=== PATIENT | male | born 1930 | race Caucasian/White ===

== ENCOUNTER 2017-03-24 08:58 | Day surgery (SDC) | payer MEDICARE ==
--- NOTE | 2017-03-21 06:58 | HP ---
PREOPERATIVE HISTORY AND PHYSICAL: DATE OF SURGERY/ADMISSION: 03/24/17. DATE OF OFFICE VISIT/ENCOUNTER: 03/20/17. ATTENDING SURGEON: Dr. Caron Vicente. (DICTATED BY DENNIS JIMENES) PROCEDURE: Revision amputation, left small finger. CHIEF COMPLAINT: Regrowth of fingernails from previously partially amputated left small finger. HISTORY OF PRESENT ILLNESS: This is an 86-year-old male complaining of regrowth of a partial fingernail at the left small finger following a left finger nail bed ablation/revision amputation in August 2016. It is bothersome to him and he would likely to have it surgically removed. PAST MEDICAL HISTORY: 1. Low back pain. 2. Hyperlipidemia. 3. History of angina. 4. Essential hypertension. 5. History of chest pain. 6. Peptic ulcer disease. 7. Cardiac pacemaker. 8. Heart disease. 9. Dizziness. 10. Atrial fibrillation. 11. Heart murmur. 12. Peripheral vascular disease. 13. Arthritis. 14. Hyperlipidemia. 15. Spinal stenosis. PAST SURGICAL HISTORY: 1. Right total knee arthroplasty. 2. Appendectomy. 3. Left hand trigger finger releases. 4. Left small finger bed ablation/revision amputation. CURRENT MEDICATIONS: 1. Zetia 10 mg half pill p.o. daily. 2. MiraLAX every Monday, Monday, Monday. 3. Ranexa 100 mg p.o. b.i.d. 4. Amoxicillin 500 mg 4 tablets one hour before dental work. 5. Crestor 20 mg half a tablet every Monday, Monday, Monday and Monday. 6. Nitrostat 0.4 mg one sublingual q. 5 minutes x3 as needed for chest pain. 7. Nexium 400 mg p.o. daily. 8. Aspirin 81 mg p.o. daily. 9. Rhinocort 32 mcg per spray 2 sprays each nostril daily. 10. Stool softener 100 mg p.o. b.i.d. 11. Lumigan 0.01% one drop in his left eye q.h.s. 12. Timolol maleate 0.5% one drop in the left eye every morning. 13. Warfarin 6 mg p.o. Monday, Monday, Monday, , Monday and Monday; and 1.5 tablets or 9 mg every Monday. 14. Propafenone 150 mg p.o. b.i.d. 15. Metoprolol 25 mg p.o. daily. 16. Isosorbide mononitrate ER 30 mg half tablet b.i.d. 17. Calcium 1000 mg plus vitamin D p.o. daily. 18. Multivitamin 1 p.o. t.i.d. 19. Fiber Complete 1 p.o. b.i.d. 20. Milk of magnesia p.r.n.. 21. Betaxolol HCl 0.5% one drop left eye q.h.s. 22. Nystatin/triamcinolone cream b.i.d. ALLERGIES: AMIODARONE and VIAGRA. FAMILY MEDICAL HISTORY: Noncontributory. SOCIAL HISTORY: The patient is retired. He is a former smoker. He quit in 1969. He denies creational drug use and denies alcohol use. REVIEW OF SYSTEMS: General: Negative for fevers, chills, or night sweats. No known anesthesia problems in the past. HEENT: Positive for headaches and occasional lightheadedness. Integumentary: Negative for abrasions, lesions or open wounds. Cardiovascular: Positive for history of heart murmur and hypertension. Respiratory: Negative. GI: Positive for heartburn, diarrhea, constipation, and acid reflux. : Positive for prostate trouble, nocturia, and urinary frequency. Musculoskeletal: Negative other than current complaints. Neurological: Negative for paresthesias, numbness, history of seizure, stroke, or epilepsy. Endocrine: Negative for diabetes or thyroid issues. Hematologic: Positive for easy bruising secondary to warfarin treatment. Infectious Disease: Negative for history of MRSA, hepatitis C, or HIV. PHYSICAL EXAMINATION GENERAL: Well-developed, well-nourished 86-year-old male, in no acute distress. VITAL SIGNS: Height 5 feet 7.5 inches, weight 201 pounds, blood pressure 120/74 , temperature 98 degrees. HEENT: Normocephalic, atraumatic. Pupils are equal, round, and reactive to light and accommodation. Extraocular movements are intact. NECK: Supple. No palpable lymph nodes. Throat is clear. PULMONARY: Lungs are clear to auscultation bilaterally. No wheezes, rales, or rhonchi. CARDIOTHORACIC: Regular rate and rhythm. S1, S2. No murmurs, rubs or gallops noted. No edema. ABDOMEN: Positive bowel sounds, soft, and nontender. NEUROLOGIC: Alert and oriented x3. Cranial nerves II through XII are intact. Sensation is intact to light touch. PERIPHERAL VASCULAR: 2+ radial and ulnar pulses, negative Mainor's test. MUSCULOSKELETAL: On exam of his left small finger, there is a small portion of a fingernail present at the tip of the finger. There is some mild associated tenderness to palpation but no erythema. No drainage. IMPRESSION: Left small finger residual fingernail after previous revision amputation. PLAN: The patient is scheduled to undergo a left small finger revision amputation with Dr. Vicente on 03/24/17. He will return to the office 10 to 14 days postop for followup and suture removal. A prescription for Ultracet was e- scribed to the patient's pharmacy for postoperative pain management. We will plan on having the patient continue to take his warfarin throughout the perioperative time-frame. DENNIS JIMENES [id number]/[facility] #: [id number] KWABENA
[2017-03-24] MEDS ORDERED: Lidocaine 1% INJ* 10 MG/ML 30 ML SDV ONE (10:31)
[2017-03-24 11:33] VITALS: BP 126/74
--- NOTE | 2017-04-06 01:31 | OP ---
DATE OF OPERATION: 03/24/17 [facility] DATE OF : 34 SURGEON: Dr. Vicente. CIVIL RIGHTS ATTORNEY: DENNIS Arenas ANESTHESIA: Straight local. PRE-OP DIAGNOSIS: Left little finger partial amputation. POST-OP DIAGNOSIS: Left little finger partial amputation. OPERATIVE PROCEDURE: Revision amputation, left little finger. ESTIMATED BLOOD LOSS: Zero. TOURNIQUET TIME: About 10 minutes. INDICATIONS FOR PROCEDURE: Mr. Hutchins is an 86-year-old man who suffered a partial amputation of his left little finger. He has a small amount of fingernail growing at the end of his finger and he presents for revision amputation. DESCRIPTION OF PROCEDURE: The patient was brought to the operating room, was given a digital block anesthetic with 10 cc of 1% plain lidocaine. The skin of his left hand and forearm was prepped and draped in the usual sterile fashion. A tourniquet Tourni-Cot was used as a tourniquet for just the left little finger. An elliptical incision was then made around the fingernail and it was removed with full thickness of the skin. The wound was irrigated and the skin edges were reapproximated with 4- 0 Nylon suture. The wound was dressed with Xeroform, 4x4, Webril, and an Darius wrap. The patient tolerated the procedure well and was brought to the recovery room in good condition. [id number]/[facility] #: [id number] MTDD
== END 2017-03-24 11:30 | disposition home or self-care (01) ==
LOC: OREAST 08:58
PROVIDERS: ATTEND Orthopaedic Surgery
DX: L72.0 Epidermal cyst (principal); E78.5 Hyperlipidemia, unspecified; I48.91 Unspecified atrial fibrillation; I11.9 Hypertensive heart disease without heart failure; I73.9 Peripheral vascular disease, unspecified; K27.9 Peptic ulcer, site unspecified, unspecified as acute or chronic, without hemorrhage or perforation; Z79.82 Long term (current) use of aspirin; Z79.01 Long term (current) use of anticoagulants; Z88.8 Allergy status to other drugs, medicaments and biological substances; Z87.891 Personal history of nicotine dependence; Z89.022 Acquired absence of left finger(s); Z95.0 Presence of cardiac pacemaker
CPT/HCPCS: 88304; J2001

== ENCOUNTER 2017-12-11 14:34 | Emergency (ER) | payer OTHER ==
[2017-12-11 14:50] VITALS: BP 129/72
--- NOTE | 2017-12-11 15:25 | RAD ---
Indication: Left wrist pain 3 views of the wrist demonstrates no fracture. Degenerative changes of the radiocarpal joint is noted with deformity of the distal ulna. IMPRESSION: NO FRACTURE OF THE WRIST IS NOTED. Degenerative changes radiocarpal joint with deformity of the ulna remodeling.
--- NOTE | 2017-12-11 15:35 | UC ---
Kavitha Lopez Gabriel, scribed for Karina Velázquez MD on 12/11/17 at 1526 . Hand/Wrist HPI - HPI Summary HPI Summary: This patient is an 87 year old M presenting to [facility] s/p fall that occurred 3 weeks ago. Pt tripped over a shop vac hose and landed on his left wrist. He did hit his head on the way down. The patient rates the pain 5/10 in severity and radiating up his arm. Symptoms alleviated by acetaminophen although, patient has placed heat on it and wrapped it in an ashok bandage without relief. Pt denies paresthesia or weakess. Skin intact. Pt is RHD. Pt is on warafarin. No h /o injury to same. Pt's was at side when fall occurred - no LOC Pt did strike left frontal area with small abraison at time of injury. Pt did not have LOC. No headache, blood HEENT, vision changes, confusion, balance difficulties or any other concerns since time of injury.Tdap UTD. Patients medication reviewed during this visit. - History Of Current Complaint Chief Complaint: UCUpperExtremity Stated Complaint: ARM INJURY Time Seen by Provider: 12/11/17 14:41 Hx Obtained From: Patient, Family/Professor Computer Science Onset/Duration: Lasting Weeks - 3 Severity Initially: Moderate Severity Currently: Moderate Pain Intensity: 5 Pain Scale Used: 0-10 Numeric Character Of Pain: Aching, Stiffness Aggravating Factor(s): Movement, Pulling Alleviating Factor(s): OTC Meds - APAP intermittently, Other - ashok applied Associated Signs And Symptoms: Negative: Numbness/Tingling - Allergies/Home Medications Allergies/Adverse Reactions: Allergies Allergy/AdvReac Type Severity Reaction Status Date / Time amiodarone Allergy Mild See Comment Verified 12/11/17 14:43 sildenafil Allergy Dizziness Verified 12/11/17 14:43 PMH/Surg Hx/FS Hx/Imm Hx Previously Healthy: No Cardiovascular History: Cardiac Disease, Hypertension Other Cancer History: Prostate cancer Other History Of: Anticoagulant Therapy - Surgical History Surgical History: Yes Surgery Procedure, Year, and Place: 2004 CABGover four years - placement of 7 stents; APPENDECTOMY - YEARS AGO; SINUS SURGERY - YEARS AGO; RT KNEE REPLACEMENT , PACEMAKER PLACEMENT 02/13/14 - Family History Known Family History: Positive: Cardiac Disease - Social History Occupation: Retired Lives: With Family Alcohol Use: None Substance Use Type: None Smoking Status (MU): Former Smoker Type: Cigarettes Amount Used/How Often: PACK A DAY Have You Smoked in the Last Year: No When Did the Patient Quit Smoking/Using Tobacco: 1972 - Immunization History Most Recent Influenza Vaccination: 2012 Most Recent Tetanus Shot: unknown Most Recent Pneumonia Vaccination: August 2013 Review of Systems Constitutional: Negative Skin: Bruising - mild left forearm Musculoskeletal: Other: - wirst pain, back pain Neurological: Negative - LOC All Other Systems Reviewed And Are Negative: Yes Physical Exam Triage Information Reviewed: Yes Appearance: Well-Appearing, No Pain Distress, Well-Nourished Vital Signs: Initial Vital Signs Temp 97.7 F 12/11/17 14:44 Pulse 75 12/11/17 14:44 Resp 20 12/11/17 14:44 BP 129/72 12/11/17 14:44 Pulse Ox 100 12/11/17 14:44 Vital Signs Reviewed: Yes Eyes: Positive: Conjunctiva Clear ENT: Positive: Hearing grossly normal Neck: Positive: Supple Respiratory: Positive: No respiratory distress, No accessory muscle use Cardiovascular: Positive: Other: - 2+ radial, 2+ ulnar CBT < 2 sec Musculoskeletal: Positive: Other: - + flex/ext elbow with mild discomfort prox, dorsu forearm + pronate/supinate + f;ext/ext wrist with mild discomfort ulnar styloid no scaphoid pain no pain carpals,metacarpals, phalanges Neurological: Positive: Other: - + thumb up, a ok, finger spread, finger cross + gross sensation throughout 5/5/ grasp Psychological Exam: Normal Skin: Positive: Other - pt missing distal phalanges ring and 5th finger left hand from previous injury Diagnostics - Radiology wrist Xray Radiology Interpretation Completed By: Radiologist - NO FRACTURE OF THE WRIST IS NOTED. Degenerative changes radiocarpal joint with deformity of the ulna remodeling. Dr. Velázquez has reviewed this report. Hand/Wrist Course/Dx - Course Course Of Treatment: Pt with discomfort distal wrist, over ulnar styloid s/p mechanical fall 3 weeks ago. will image. splint. if fx, ortho f/u. if not fx , pcp after period of splint and wrist. pt and spouse comfortable and in agreement with plan - Differential Dx/Diagnosis Provider Diagnoses: left wrist sprain Discharge - Discharge Plan Condition: Stable Disposition: HOME Patient Education Materials: Wrist Sprain (ED) Referrals: Jose Alejandro Longoria MD [Primary Care Provider] - Additional Instructions: - Wear splint as much as possible for comfort and support - Okay to take Tylenol every 8 hours as needed for discomfort - Okay to apply ice (not directly on the skin) 20 minutes at a time, 2-3 times a day for pain and swelling. - Contact your doctor to schedule a follow-up at the end of this week Contact your doctor or return with questions or concerns The documentation as recorded by the Kavitha benavides Gabriel accurately reflects the service I personally performed and the decisions made by , Karina Velázquez MD.
== END 2017-12-11 14:45 | disposition home or self-care (01) ==
LOC: UCEAST 14:34
DX: S63.502A Unspecified sprain of left wrist, initial encounter (principal); W01.0XXA Fall on same level from slipping, tripping and stumbling without subsequent striking against object, initial encounter; Y93.9 Activity, unspecified; Y92.9 Unspecified place or not applicable; I11.9 Hypertensive heart disease without heart failure; Z95.1 Presence of aortocoronary bypass graft; Z95.5 Presence of coronary angioplasty implant and graft; Z79.01 Long term (current) use of anticoagulants; Z95.0 Presence of cardiac pacemaker; Z96.651 Presence of right artificial knee joint; Z87.891 Personal history of nicotine dependence; Z85.46 Personal history of malignant neoplasm of prostate; Z88.8 Allergy status to other drugs, medicaments and biological substances
CPT/HCPCS: 99213; G0463

== ENCOUNTER 2018-01-25 13:40 | Emergency (ER) | payer OTHER ==
--- OUTSIDE RECORDS SUMMARY | 2018-01-25 13:50 | XMS REPORT ---
:1930 External Reference #:[id number] Author Organization [facility] [employer] Address [address] [place] [address] Phone [phone] Care Team Providers Name Role Phone Jose Alejandro Longoria M.D. Primary Care Physician Unavailable Payers Type Date Identification Numbers Payment Provider Subscriber Commercial Policy Number: [id number] [employer] Angelica Alan Hutchins Group Number: [id number] [address] [id number] PayID: [id number] [place] [address] Problems Date Description Provider Status Onset: Basal cell carcinoma of skin Active Onset: Allergy Active Onset: H/O: hay fever Active Onset: Gastroesophageal reflux disease Active Onset: Carcinoma of prostate Active Onset: Cardiac pacemaker in situ Active Onset: Atrial fibrillation Active Onset: Angina Active Onset: Arthritis Active Onset: Vertigo Active Onset: Pure hypercholesterolemia Active Onset: Seasonal allergy Active Onset: 04/29/2015 Primary open angle glaucoma Margarita Kilpatrick O.D. Active Onset: 04/29/2015 Vitreous degeneration Margarita Kilpatrick O.D. Active Onset: 04/29/2015 Myopia Margarita Kilpatrick O.D. Active Onset: 04/29/2015 Presbyopia Margarita Kilpatrick O.D. Active Onset: 04/29/2015 Mild / Early Stage Glaucoma Margarita Kilpatrick O.D. Active Onset: 06/16/2016 Pseudophakia Margarita Kilpatrick O.D. Active Onset: 07/20/2016 Retained foreign body of eyelid Dominique Alberts O.D. Active Onset: 12/15/2016 Primary open angle glaucoma of left Margarita Kilpatrick O.D. Active eye Onset: 06/29/2017 Regular astigmatism Margarita Kilpatrick O.D. 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 morning Lumigan 04/28/ Active Solution 0.01% 90unit one drop Margarita Jones 2014 s left eye [place], every O.D. night Isosorbide / Active Tablets ER 30mg [place], Mononitrate ER 0000 24HR Mary Love Ranexa / Active Tablets ER 1000mg Unknown 0000 12HR Propafenone / Active Tablets 150mg Unknown HCL 0000 Metoprolol / Active Tablets 25mg Unknown Tartrate 0000 Warfarin / Active Tablets 6mg Unknown Sodium 0000 Nitrostat / Active Tablets Sub 0.4mg as needed [place], 0000 Mary Love Crestor / Active Tablets 5mg [place], 0000 Mary Love Nexium / Active Capsules DR 40mg Unknown 0000 Fibercon / Active Tablets 625mg Unknown 0000 Miralax / Active Powder 3350NF Unknown 0000 Famotidine / Active Tablets 40mg Unknown 0000 Multi Vitamin / Active Tablets Unknown Daily 0000 Calcium 600 / Active Tablets 600mg Unknown 0000 Rhinocort Aqua / Active Suspension 32mcg/Act Unknown 0000 Zetia / Active Tablets 10mg [place], 0000 Mary Love Stool Softener / Active Capsules 100mg Unknown 0000 Maxitrol 07/20/ Hx Ointment 3.5-19791- 3.500g place 0.5 Dominique 2016 - 0.1 m inch Cyndi Alberts, 07/31/ strip in O.D. 2016 the left eye at night for 1 week Rosuvastatin / Hx Tablets 20mg [place], Calcium 0000 - Mary Love 2016 Results Description No Information Procedures Date CPT Code Description Status 01/03/2018 31436 Est Patient Intermediate Exam Completed 06/29/2017 85901 Scanning Computerized Ophthalmic Diagnostic Imag Completed Posterior Seg On 06/29/2017 03145 Visual Field Exam Extended Completed 06/29/2017 17475 Determination Of Refractive State Completed 06/29/2017 51794 Est Patient Comprehensive Exam Completed 07/20/2016 50788 Est Patient Intermediate Exam Completed 06/16/2016 35758 Scanning Computerized Ophthalmic Diagnostic Imag Completed Posterior Seg On 06/16/2016 18558 Visual Field Exam Extended Completed 06/16/2016 74879 Est Patient Comprehensive Exam Completed 11/09/2015 77177 Est Patient Intermediate Exam Completed 04/29/2015 67139 Est Patient Comprehensive Exam Completed 04/29/2015 18467 Determination Of Refractive State Completed 04/29/2015 25655 Visual Field Exam Extended Completed 04/29/2015 67969 Scanning Computerized Ophthalmic Diagnostic Imag Completed Posterior Seg On 04/10/2014 49558 Fundus Photography With Interpretation And Report Completed 03/18/2013 36781 Visual Field Exam Extended Completed 03/18/2013 90251 Est Patient Intermediate Exam Completed 02/15/2012 49336 Visual Field Exam Extended Completed 02/15/2012 96927 Est Patient Comprehensive Exam Completed 02/15/2012 602 Nose Pads Completed 02/11/2011 68444 Visual Field Exam Extended Completed 02/11/2011 57277 Pachymetry Completed 02/07/2011 29646 Scanning Computerized Ophthalmic Diagnostic Imag Completed Posterior Seg On 02/07/2011 02028 Est Patient Intermediate Exam Completed 07/22/2009 36087 Est Patient Intermediate Exam Completed 06/25/2008 03430 Determination Of Refractive State Completed 06/25/2008 73062 New Patient Comprehensive Exam Completed Encounters Type Date Location Provider CPT E/M Dx Office Visit 12/15/2016 Jarred Philippe MD, Margarita Kilpatrick, 05057 H40.1122 3:00p pc O.D. Office Visit 10/10/2014 Jarred Philippe MD, Margarita Kilpatrick, 72894 365.11 9:30a pc O.D. 365.71 Office Visit 04/10/2014 1:45p Jarred Philippe MD, Todd Daly M.D. 65478 365.12 pc 365.72 Office Visit 10/18/2013 2:30p Jarred Philippe MD, Margarita Kilpatrick O.D. 23062 930.1 pc Office Visit 10/07/2013 2:30p Jarred Philippe MD, Todd Daly M.D. 88777 365.12 pc 365.72 Office Visit 03/16/2012 1:30p Jarred Philippe MD, Todd Daly M.D. 82763 365.11 pc 365.71 Office Visit 02/11/2011 8:45a Jarred Philippe MD, Todd Daly M.D. 61547 pc Office Visit 07/05/2008 1:00p Jarred Philippe MD, Dominique Alberts O.D. 00525 918.1 pc Office Visit 07/04/2008 10:15a Jarred Philippe MD, Dominique Alberts O.D. 19033 918.1 Plan of Care 01/24/2018 - Margarita Kilpatrick O.D.H40.1121 Primary open-angle glaucoma, left eye , mild stageComments:Smoking can increase the risk of developing or worsening any eye related disease, as well as affect your overall health. If you are a smoker, we strongly recommend that you quit.If you are not a smoker, we strongly recommend that you do not start. Your glaucoma is stable at this time.Your eye pressure is within an acceptable range, and your testing does not show any Glaucoma related changes at thistime. Please continue your treatment.Follow up:6 months DFE/OCT nerve/VF 30-2
--- OUTSIDE RECORDS SUMMARY | 2018-01-25 13:51 | XMS REPORT ---
:1930 External Reference #:[id number] Author Organization [employer] Address [address] [place] [address] Phone [phone] Care Team Providers Name Role Phone Jose Alejandro Longoria M.D. 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 morning Lumigan 04/28/ Active Solution [...] / Active Tablets Sub 0.4mg as needed [place], 0000 Mary Love Crestor / Active Tablets 5mg [place], 0000 Mary Love Nexium / Active Capsules DR 40mg Unknown 0000 Fibercon / Active Tablets 625mg Unknown 0000 Miralax / Active Powder 3350NF Unknown 0000 Famotidine / Active Tablets 40mg Unknown 0000 Multi Vitamin / Active Tablets Unknown Daily 0000 Calcium 600 / Active Tablets 600mg Unknown 0000 Rhinocort Aqua / Active Suspension 32mcg/Act Unknown 0000 Zetia / Active Tablets 10mg [place], 0000 Mary Ivan Stool Softener / Active Capsules 100mg Unknown 0000 Maxitrol 07/20/ Hx Ointment 3.5-87745- 3.500g place 0.5 Dominique 2016 - 0.1 m inch Cyndi Alberts, 07/31/ strip in O.D. 2016 the left eye at night for 1 week Rosuvastatin / Hx Tablets 20mg [place], Calcium 0000 - Mary Love 2016 Results Description No Information Procedures Date CPT Code Description Status 06/29/2017 71003 Scanning Computerized Ophthalmic Diagnostic Imag Completed Posterior Seg On 06/29/2017 17709 Visual Field Exam Extended Completed 06/29/2017 00428 Determination Of Refractive State Completed 06/29/2017 33634 Est Patient Comprehensive Exam Completed 07/20/2016 96960 Est Patient Intermediate Exam Completed 06/16/2016 40729 Scanning Computerized Ophthalmic Diagnostic Imag Completed Posterior Seg On 06/16/2016 15091 Visual Field Exam Extended Completed 06/16/2016 68619 Est Patient Comprehensive Exam Completed 11/09/2015 47580 Est Patient Intermediate Exam Completed 04/29/2015 15547 Scanning Computerized Ophthalmic Diagnostic Imag Completed Posterior Seg On 04/29/2015 54930 Visual Field Exam Extended Completed 04/29/2015 10815 Determination Of Refractive State Completed 04/29/2015 90257 Est Patient Comprehensive Exam Completed 04/10/2014 01293 Fundus Photography With Interpretation And Report Completed 03/18/2013 36070 Visual Field Exam Extended Completed 03/18/2013 67671 Est Patient Intermediate Exam Completed 02/15/2012 92853 Visual Field Exam Extended Completed 02/15/2012 22531 Est Patient Comprehensive Exam Completed 02/15/2012 602 Nose Pads Completed 02/11/2011 09232 Visual Field Exam Extended Completed 02/11/2011 85903 Pachymetry Completed 02/07/2011 10523 Scanning Computerized Ophthalmic Diagnostic Imag Completed Posterior Seg On 02/07/2011 84989 Est Patient Intermediate Exam Completed 07/22/2009 43803 Est Patient Intermediate Exam Completed 06/25/2008 33025 Determination Of Refractive State Completed 06/25/2008 68219 New Patient Comprehensive Exam Completed Encounters Type Date Location Provider CPT E/M Dx Office Visit 12/15/2016 Jarred Philippe MD, Margarita Kilpatrick, 56835 H40.1122 3:00p pc O.D. Office Visit 10/10/2014 Jarred Philippe MD, Margarita Kilpatrick, 23885 365.11 9:30a pc O.D. 365.71 Office Visit 04/10/2014 1:45p Jarred Philippe MD, Todd Daly M.D. 22493 365.12 pc 365.72 Office Visit 10/18/2013 2:30p Jarred Philippe MD, Margarita Kilpatrick O.D. 28079 930.1 pc Office Visit 10/07/2013 2:30p Jarred Philippe MD, Todd Daly M.D. 65797 365.12 pc 365.72 Office Visit 03/16/2012 1:30p Jarred Philippe MD, Todd Daly M.D. 41761 365.11 pc 365.71 Office Visit 02/11/2011 8:45a Jarred Philippe MD, Todd Daly M.D. 18658 pc Office Visit 07/05/2008 1:00p Jarred Philippe MD, Dominique Alberts O.D. 15271 918.1 pc Office Visit 07/04/2008 10:15a Jarred Philippe MD, Dominique Alberts O.D. 86459 918.1 Plan of Care Future Appointment(s):01/24/2018 1:15 pm - Margarita Kilpatrick O.D. at Jarred Philippe MD, 01/03/2018 - Margarita Kilpatrick O.D.H40.1121 Primary open-angle glaucoma, left eye, mild stageComments:Smoking can increase the risk of [...] related changes at thistime. Please continue your treatment. Smoking can increase the risk of developing or worsening any eye related disease, as well as affect your overall health. If you are a smoker , we strongly recommend that you quit.If you are not a smoker, we strongly recommend that you do not start. Your glaucomais stable at this time.Your eye pressure is within an acceptable range, and your testing does not show any Glaucoma related changes at this time. Please continue your treatment.
[2018-01-25 14:01] VITALS: BP 98/62
--- NOTE | 2018-01-25 14:49 | UC ---
General HPI - HPI Summary HPI Summary: 87 yo WM with MMP c/o fall x 4 in the last 4-6 weeks. pt was recently dx'd with spinal stenosis and has trouble " clearing the floor with his feet' C/o LBP , left elbow pain. Denies dizziness, LOC - History of Current Complaint Chief Complaint: UCBackPain Stated Complaint: FELL BACK INJURY Time Seen by Provider: 01/25/18 14:01 Hx Obtained From: Patient Hx From Patient Unobtainable Due To: Other Onset/Duration: Sudden Onset Onset Severity: Moderate Pain Intensity: 10 - Allergy/Home Medications Allergies/Adverse Reactions: Allergies Allergy/AdvReac Type Severity Reaction Status Date / Time amiodarone Allergy Mild See Comment Verified 01/25/18 13:50 sildenafil Allergy Dizziness Verified 01/25/18 13:50 PMH/Surg Hx/FS Hx/Imm Hx - Additional Past Medical History Additional PMH: Spinal stenosis Previously Healthy: Yes Cardiovascular History: Cardiac Disease, Pacemaker/ICD Cancer History: Prostate Cancer Other History Of: Anticoagulant Therapy - Surgical History Surgical History: Yes Surgery Procedure, Year, and Place: 09/14/04 Gastroscopy- hiatial hernia; 10/03/04 - Cardiac Bi-pass of the circumfelx CA & Left anterior descending artery; : 3 stents in RCA; 03/03/05-1 stent proximal coronary; 01/04/2015- RCA- 3 stents; 08/06/13 Right TKR; 08/17/18- ED for "heart shock"; 01/28/14-prostate biopsy; adenocarcinoma; 02/12/14 Pacemaker placed - Family History Known Family History: Positive: Cardiac Disease - Social History Alcohol Use: None Substance Use Type: None Smoking Status (MU): Former Smoker Type: Cigarettes Amount Used/How Often: PACK A DAY Have You Smoked in the Last Year: No When Did the Patient Quit Smoking/Using Tobacco: 1972 - Immunization History Most Recent Influenza Vaccination: 2012 Most Recent Tetanus Shot: unknown Most Recent Pneumonia Vaccination: August 2013 Review of Systems Constitutional: Negative Skin: Negative Eyes: Negative ENT: Negative Respiratory: Negative Cardiovascular: Negative Gastrointestinal: Negative Genitourinary: Negative Motor: Negative Neurovascular: Negative Musculoskeletal: Decreased ROM, Myalgia - LBP, left elbow pain Neurological: Negative Psychological: Negative All Other Systems Reviewed And Are Negative: Yes Physical Exam Triage Information Reviewed: Yes Appearance: Well-Appearing Vital Signs: Initial Vital Signs Temp 36.5 C 01/25/18 13:50 Pulse 71 01/25/18 13:50 Resp 18 01/25/18 13:50 BP 98/62 01/25/18 13:50 Pulse Ox 99 01/25/18 13:50 Eye Exam: Other ENT Exam: Normal Neck exam: Normal Respiratory Exam: Normal Respiratory: Positive: Lungs clear Cardiovascular Exam: Normal Abdominal Exam: Normal Musculoskeletal: Positive: Other: - B/L wrist pain, lumbar and lower thoracic paraspinal tenderness and midline tenderness, no radiculopathy Neurological Exam: Normal Psychological Exam: Normal Course/Dx - Course Course Of Treatment: XR of left elbow neg for fx, CT of brain neg for ICH or subdural hematoma, CT c-spine, thoracic and lumbar spine done, of note, T9-10 nondisplaced vertebral body fx noted on CT and per radiologist. On CT and speaking with radiologist, he also notes "ankylosing spondylitis but no spinal stenosis". advised f/u with neurosurgery priya - Differential Dx - Multi-Symptom Provider Diagnoses: thoracic lumbar fracture T9-10 Discharge - Sign-Out/Discharge Documenting (check all that apply): Discharge/Admit/Transfer - Discharge Plan Condition: Stable Disposition: HOME Patient Education Materials: Thoracolumbar Fracture (ED) Referrals: Morgan Flowers MD [Medical Doctor] - Jose Alejandro Longoria MD [Primary Care Provider] - Additional Instructions: please follow up with neurosurgery priya - Billing Disposition and Condition Condition: STABLE Disposition: HOME
--- NOTE | 2018-01-25 15:29 | RAD ---
Indication: Left elbow pain after fall. 4 views of left elbow demonstrates degenerative changes. Anterior fat pad sign is noted. No definite fracture is noted. If there is persistent clinical concern follow-up imaging is suggested. Calcifications along the triceps tendon is noted. IMPRESSION: No definite fracture is noted although there is anterior fat pad sign. Depending on clinical scenario follow-up imaging could BE performed.
--- NOTE | 2018-01-25 15:30 | RAD ---
HISTORY: Fall, back pain COMPARISONS: None TECHNIQUE: Multiple contiguous axial CT scans were obtained of the cervical spine without intravenous contrast, with coronal and sagittal multiplanar reformations. FINDINGS: BRAIN: The visualized brain is unremarkable CENTRAL CANAL: Evaluation of the central canal is limited on CT technique; however, there is no obvious canalicular mass or epidural hemorrhage. ALIGNMENT: The alignment is normal, without subluxation or dislocation. VERTEBRAL BODIES: There is diffuse osteopenia. There is no displaced fracture. JOINTS: There is facet osteoarthritis with mild uncovertebral osteoarthritis. There is osteoarthritis of the atlantoaxial articulation. MUSCULATURE: Unremarkable INTERVERTEBRAL DISCS: There is diffuse loss of intervertebral disc height. AXIAL IMAGES: C2-C3: There is no osseous neural foraminal narrowing or central canal stenosis. C3-C4: There is mild bilateral neural foraminal narrowing. There is no osseous central canal stenosis. C4-C5: There is mild bilateral neuroforaminal narrowing. There is no osseous central canal stenosis. C5-C6: There is no osseous neural foraminal narrowing or central canal stenosis. C6-C7: There is no osseous neural foraminal narrowing or central canal stenosis. C7-T1: There is no osseous neural foraminal narrowing or central canal stenosis. SOFT TISSUES: The visualized soft tissues of the neck are unremarkable. The prevertebral fat stripe is preserved. OTHER: There is a small left mastoid effusion.. IMPRESSION: 1. OSTEOPENIA. 2. DEGENERATIVE DISC DISEASE AND OSTEOARTHRITIS. 3. NO ACUTE OSSEOUS INJURY TO THE CERVICAL SPINE. 4. SMALL LEFT MASTOID EFFUSION.
--- NOTE | 2018-01-25 15:30 | RAD ---
INDICATION: Head injury. COMPARISON: Comparison is made with a prior CT of the brain from July 27, 2016. TECHNIQUE: Contiguous axial sections of the brain were obtained from the skull base to the vertex without contrast. FINDINGS: The ventricles, cisterns and sulci are enlarged consistent with diffuse atrophy. There are multiple focal areas of decreased density in the subcortical and periventricular white matter suggestive of moderate chronic small vessel ischemic changes. No other focal abnormality or mass effect is seen. There is no evidence for hemorrhage. No significant focal osseous abnormality is seen. The visualized portion of the paranasal sinuses and mastoid air cells appear clear. The patient appears to be status post paranasal sinus surgery. IMPRESSION: NO EVIDENCE FOR ACUTE INTRACRANIAL ABNORMALITY.
--- NOTE | 2018-01-25 15:31 | RAD ---
Indication: Low back pain. CT of the lumbar spine was obtained in the axial plane. Sagittal and coronal reconstructed images were obtained. The vertebral bodies appear normal in height. No evidence of compression is noted. There is diffuse osteopenia noted. No pelvic masses are noted. At L5-S1 no disc protrusion is noted. Moderate facet hypertrophy is noted. No central or foraminal stenosis is noted. At L4-L5 degenerative disc disease with moderate facet hypertrophy is noted. No central or foraminal stenosis is noted. No foraminal stenosis is noted. At L3-L4 there is no disc protrusion. No central or foraminal stenosis is noted. No facet arthropathy is noted. At L2-L3 spondylitic ridge flattens the thecal sac. No central or foraminal stenosis is noted. At L1-L2 there is no disc protrusion. Degenerative disc disease is noted. No central or foraminal stenosis is noted. At T12-L1 degenerative disc disease is noted. No compression fracture is noted. IMPRESSION: Diffuse osteopenia with degenerative changes of the facet joint most severe at L3-L4, L4-L5 and L5-S1. Degenerative disc disease at L1-L2 and L2-L3 is also noted.
--- NOTE | 2018-01-25 15:40 | RAD ---
HISTORY: Fall, low back pain COMPARISONS: CT of the chest dated August 11, 2013 TECHNIQUE: Multiple contiguous axial CT scans were obtained of the thoracic spine without intravenous contrast, with coronal and sagittal multiplanar reformations. FINDINGS: SPINAL CANAL: Evaluation of the central canal is limited on CT technique; however, there is no obvious canalicular mass or epidural hemorrhage. ALIGNMENT: The alignment is normal. VERTEBRAL BODIES: There is diffuse osteopenia. There is ossification of the anterior syndesmophytes, with disruption of the anterior syndesmophytes at T9-T10, with a linear lucency of the anterior and middle thirds of the T10 vertebral body. JOINTS: There is mild osteoarthritis of the costovertebral articulations. MUSCULATURE: Unremarkable INTERVERTEBRAL DISCS: There is diffuse loss of intervertebral disc height throughout the spine. AXIAL IMAGES: There is no osseous central canal stenosis or neuroforaminal narrowing. SOFT TISSUES: The visualized soft tissues of the chest and abdomen are unremarkable. OTHER: None IMPRESSION: 1. OSTEOPENIA. 2. FINDINGS CONSISTENT WITH A CLOSE AND SPONDYLITIS. 3. THERE IS NONDISPLACED FRACTURE THROUGH THE ANTERIOR SYNDESMOPHYTES AT T9-T10, EXTENDING THROUGH THE INTERVERTEBRAL DISC SPACE AND INTO THE ANTERIOR AND MIDDLE THIRDS OF THE VERTEBRAL BODY OF T10. PRELIMINARY FINDINGS WERE DISCUSSED WITH DR. BOWLES AT APPROXIMATELY 3:36 PM ON JANUARY 25, 2018.
== END 2018-01-25 16:07 | disposition home or self-care (01) ==
LOC: UCEAST 13:40
DX: S22.071A Stable burst fracture of T9-T10 vertebra, initial encounter for closed fracture (principal); W19.XXXA Unspecified fall, initial encounter; Z91.81 History of falling; Y93.9 Activity, unspecified; Y92.9 Unspecified place or not applicable; M85.88 Other specified disorders of bone density and structure, other site; M46.94 Unspecified inflammatory spondylopathy, thoracic region; M51.36 Other intervertebral disc degeneration, lumbar region; M50.30 Other cervical disc degeneration, unspecified cervical region; H74.8X2 Other specified disorders of left middle ear and mastoid; M25.522 Pain in left elbow; Z95.810 Presence of automatic (implantable) cardiac defibrillator; Z79.01 Long term (current) use of anticoagulants; Z95.5 Presence of coronary angioplasty implant and graft; Z85.46 Personal history of malignant neoplasm of prostate; Z96.651 Presence of right artificial knee joint; Z88.8 Allergy status to other drugs, medicaments and biological substances; Z87.891 Personal history of nicotine dependence
CPT/HCPCS: 70450; 72125; 72128; 72131; 81003; 99212; G0463

== ENCOUNTER 2019-11-06 16:55 | Emergency (ER) | payer MEDICARE ==
--- OUTSIDE RECORDS SUMMARY | 2019-11-06 17:10 | XMS REPORT ---
:1930 Author Organization [facility] Care Team Providers Name Role Phone Unavailable Unavailable Unavailable Problems This patient has no known problems. Allergies, Adverse Reactions, Alerts Allergy Allergy Status Severity Reaction(s) Onset Inactive Treating Comments Name Type Date Date Clinician Unknown None Active Unknown None Unknown No Known Allergies For This Patient Medications Ordered Filled Start Stop Current Ordering Indication Dosage Frequency Signature Comments Components Medication Medication Date Date Medication? Clinician (SIG) Name Name No Known No Known No None None None Medications Medications For This For This Patient Patient Procedures This patient has no known procedures. Results This patient has no known results.
--- OUTSIDE RECORDS SUMMARY | 2019-11-06 17:10 | XMS REPORT ---
:1930 Author Organization [facility] Care Team Providers Name Role Phone Unavailable [...]
--- OUTSIDE RECORDS SUMMARY | 2019-11-06 17:10 | XMS REPORT ---
:1930 Author Organization [facility] Care Team Providers Name Role Phone Unavailable [...]
--- OUTSIDE RECORDS SUMMARY | 2019-11-06 17:10 | XMS REPORT ---
:1930 Author Organization [facility] Care Team Providers Name Role Phone Unavailable [...]
--- OUTSIDE RECORDS SUMMARY | 2019-11-06 17:10 | XMS REPORT | Continuity of Care Document ---
:1930 External Reference #:[id number] Author Name Mary Stoner M.D. (transmitted by agent of provider Sosa Waters) Address [address] [place] [id number] Care Team Providers Name Role Phone [facility] - Care Team Information Senior Analyst Developer [phone] [facility] Maru Drake F.N.P. - Family Care Team Information Senior Analyst Developer [phone] Benjamin Singh MD - Family Care Team Information Senior Analyst Developer [phone] Medicine Problems Active Problems Provider Date Arteriosclerosis of autologous vein coronary Mary Stoner M.D. Onset: 2012 artery bypass graft Conduction disorder of the heart Mary Stoner M.D. Onset: 07/09/2013 Benign essential hypertension Mary Stoner M.D. Onset: 07/09/2013 Mixed hyperlipidemia Mary Stoner M.D. Onset: 07/09/2013 Arthropathy Mary Stoner M.D. Onset: 07/09/2013 Peripheral vascular disease Mary Stoner M.D. Onset: 07/09/2013 Heart murmur Mary Stoner M.D. Onset: 07/09/2013 Atrial fibrillation Mary Stoner M.D. Onset: 08/27/2013 Dizziness and giddiness Nurse Visit IC Onset: 09/27/2013 Coronary arteriosclerosis Mary Stoner M.D. Onset: 11/25/2013 Chronic ischemic heart disease Mary Stoner M.D. Onset: 01/01/2014 Cardiac pacemaker in situ Mary Stoner M.D. Onset: 02/19/2014 Peptic reflux disease Mary Stoner M.D. Onset: 02/19/2014 Chest pain DENNIS Montoya Onset: 02/26/2014 Essential hypertension Mary Stoner M.D. Onset: 10/03/2014 Angina pectoris Mary Stoner M.D. Onset: 10/17/2014 Hyperlipidemia Mary Stoner M.D. Onset: 02/11/2015 Low back pain Morgan Flowers M.D. Onset: 05/06/2015 Paroxysmal atrial fibrillation Mary Stoner M.D. Onset: 02/17/2016 Pure hypercholesterolemia Mary Stoner M.D. Onset: 02/17/2016 Sinus node dysfunction Mary Stoner M.D. Onset: 02/17/2016 Intermittent claudication due to Domenic Gonzalez M.D. Onset: 04/24/2019 atherosclerosis of [place] artery of limb Aortic valve disorder Mary Stoner M.D. Onset: 10/25/2019 Social History Type Date Description Comments Sex Unknown Tobacco Use Start: Unknown End: Former Cigarette Smoker Unknown Smoking Status Reviewed: 10/25/19 Former Cigarette Smoker ETOH Use Denies alcohol use Tobacco Use Start: Unknown End: Patient is a former Quit in 1969 Unknown smoker Recreational Drug Use Denies Drug Use Exercise Type/Frequency Exercises regularly Walks golf course every morning Allergies, Adverse Reactions, Alerts Active Allergies Reaction Severity Comments Date Viagra Afib 08/01/2013 Amiodarone Taste 08/01/2013 Inactive Allergies NKDA 04/29/2013 Medications Active Medications SIG Qnty Indications Ordering Date Provider Miralax Mon,Mon, Fri. 1mon Mary Stoner, 05/12/2014 3350NF M.D. Packet Ranexa 1 tab by mouth 180tabs Mary Stoner, 04/01/2014 1000mg twice a day M.DRachele Tablets ER 12HR Amoxicillin 4 tablets 1 hour 16caps Jose Ceja M.D. 12/09/2013 500mg before dental work Capsules Nitrostat 1 sl q5mins x3 as 25tabs Mary Stoner, 08/16/2012 0.4mg needed for chest M.D. Tablets Sub pain, if no relief call 911 Rocklatan both eyes once Finesse, Margarita K, daily at night O.D. 0.02-0.005% Solution Betaxolol HCL both eyes once Unknown 0.5% daily Solution Warfarin Sodium 1 tablet on monday Unknown 2mg as directed ( Last Tablets Inr check 12/19/18 ) Warfarin Sodium 1 tablet po on days 100tabs Jose Alejandro T. 6mg mon,, mon, MD Von Tablets thur, mon, sun as directed ( Last Inr 12/19/18 adjustment [facility]) Lupron Depot 1 injection Im Unknown every 3 months as directed ( last injection Sep 2019) Nystatin-Triamcinol Twice daily Unknown one 30mg Cream Fibercon 1 po twice daily Unknown 625 Tablets Multiple Vitamin 1 by mouth every 100tabs Unknown day Tablets Calcium 1000 + D daily Unknown Metoprolol Tartrate Take One-Half (/2) 45tabs Dolores Kumar, Tablet Daily (Dose N.P. 25mg Tablets Change) Propafenone HCL 1 by mouth twice a 180tabs Mary Stoner, day M.D. 150mg Tablets Stool Softener 1 po bid 60caps Unknown 100mg Capsules Famotidine 1 by mouth every 14tabs Susannah Jon 40mg day ALANA Gil Tablets Aspirin 81 1 po qd Unknown [address] Tablets DR Jung 1 by mouth daily 90caps Jose Alejandro Jones. 40mg MD Von Capsules DR Medications Administered in Office Medication SIG Qnty Indications Ordering Provider Date Depomedrol 40MG Mich Vincent MD 01/28/2019 Injection Depomedrol 40MG SAUL Arenas 09/27/2017 Injection Inj, Regadenoson, 0.1 MG Nicolas Fisher M.D., 02/07/2017 Injection WANG BOYLE Aminophylline Nicolas Fisher M.D., 02/07/2017 Injection WANG BOYLE Technetium TC 99M Nicolas Fisher M.D., 02/07/2017 Tetrofosmin, Per Unit Dose Up FACC, FASNC To 40 Millicuries Injection Depomedrol 40MG SAUL Arenas 06/15/2016 Injection Depomedrol 80MG Caron Perkins M.D. 09/03/2015 Injection Inj, Regadenoson, 0.1 MG Mary Stoner M.D. 10/22/2013 Injection Technetium TC 99M Mary Stoner M.D. 10/22/2013 Tetrofosmin, Per Unit Dose Up To 40 Millicuries Injection Depomedrol 80MG Jose Ceja M.D. 04/29/2013 Injection Depomedrol 80MG Jose Ceja M.D. 09/03/2012 Injection Immunizations Description No Information Available Vital Signs Date Vital Result Comment 10/25/2019 8:38am Height 67.5 inches 5'7.50" Weight 197.00 lb w/ shoes Heart Rate 66 /min BP Systolic Sitting 146 mmHg Lue BP Diastolic Sitting 82 mmHg Lue BMI (Body Mass Index) 30.4 kg/m2 09/09/2019 11:14am Height 67.5 inches 5'7.50" Weight 149.00 lb with shoes Heart Rate 68 /min BP Systolic Sitting 132 mmHg LA BP Diastolic Sitting 80 mmHg LA BP Systolic Standing 128 mmHg LA BP Diastolic Standing 80 mmHg LA BMI (Body Mass Index) 23.0 kg/m2 Ejection Fraction 60% Echo 08/12/2013 Results Test Acquired Date Facility Test Result H/L Range Note Laboratory test 07/18/2019 [facility] Blood Urea 25 mg/dL High 6-[address] [place] [address] [phone] Creatinine 07/18/2019 [facility] Creatinine 1.43 mg/dL High 0.67-1.[address] [place] [address] [phone] Egfr Non- 46.9 >60 Egfr 56.7 >60 1 1 Because ethnic data is not always readily available, this report includes an eGFR for both -Americans and non- Americans. The National Kidney Disease Education Program (NKDEP) does not endorse the use of the MDRD equation for patients that are not between the ages of 18 and 70, are , have extremes of body size, muscle mass, or nutritional status, or are non- or non-. According to the National Kidney Foundation, irrespective of diagnosis, the stage of the disease is based on the level of kidney function: Stage Description GFR(mL/min/1.73 m(2)) 1 Kidney damage with normal or decreased GFR 90 2 Kidney damage with mild decrease in GFR 60-89 3 Moderate decrease in GFR 30-59 4 Severe decrease in GFR 15-29 5 Kidney failure <15 (or dialysis) Procedures Date Code Description Status 09/13/2019 15603 ECHO Transthoracic, Real-Time 2D With Doppler And Completed Color Flow 09/13/2019 37774 ECHO Transthoracic, Real-Time 2D With Doppler And Completed Color Flow 09/09/2019 23350 Pace Maker Eval W/Iterative Adjment Dual Lead Completed 09/09/2019 11674 Pace Maker Eval W/Iterative Adjment Dual Lead Completed 09/09/2019 06741 EKG Tracing & Interpretation Completed 02/05/2014 131385886 Bone Mineral Density Test Completed Medical Devices Description No Information Available Encounters Type Date Location Provider Dx Diagnosis Office Visit 10/25/2019 [facility] Mary Stoner, I25.10 Athscl heart 8:40a Of Zohra [facility]. disease of [place] coronary artery w/o ang pctrs M79.10 Myalgia, unspecified site I35.0 Nonrheumatic aortic (valve) stenosis Office Visit 09/06/2019 [facility] S22.078D Oth fracture 11:30a Services Of Zohra Bowman MD of T9-T10 vertebra, subs for fx w routn heal D18.09 Hemangioma of other sites Office Visit 07/15/2019 [facility] D18.09 Hemangioma of 4:00p Services Of Zohra Bowman MD other sites S22.078D Oth fracture of T9-T10 vertebra, subs for fx w routn heal Assessments Date Code Description Provider 10/25/2019 I25.10 Atherosclerotic heart disease of [place] Mary Stoner M.D. coronary artery without angina pectoris 10/25/2019 M79.10 Myalgia, unspecified site Mary Stoner M.D. 10/25/2019 I35.0 Nonrheumatic aortic (valve) stenosis Mary Stoner M.D. 09/13/2019 R91.8 Other nonspecific abnormal finding of Traveling ECHO 2 lung field 09/13/2019 I25.10 Atherosclerotic heart disease of [place] Mary Stoner M.D. coronary artery without angina pectoris 09/13/2019 I25.10 Atherosclerotic heart disease of [place] Traveling ECHO 2 coronary artery without angina pectoris 09/13/2019 Z95.0 Presence of cardiac pacemaker Traveling ECHO 2 09/09/2019 I49.5 Sick sinus syndrome Mary Stoner M.D. 09/09/2019 I49.5 Sick sinus syndrome Ica Pacer Schedule 09/09/2019 Z95.0 Presence of cardiac pacemaker Mary Stoner M.D. 09/09/2019 Z95.0 Presence of cardiac pacemaker Mary Stoner M.D. 09/09/2019 Z95.0 Presence of cardiac pacemaker Ica Pacer Schedule 09/09/2019 I25.10 Atherosclerotic heart disease of [place] Mary Stoner M.D. coronary artery without angina pectoris 09/09/2019 E78.00 Pure hypercholesterolemia, unspecified Mary Stoner M.D. 09/09/2019 I48.0 Paroxysmal atrial fibrillation Mary Stoner M.D. 09/09/2019 R91.8 Other nonspecific abnormal finding of Mary Stoner M.D. lung field 09/06/2019 S22.078D Other fracture of T9-T10 vertebra, Zhang Bowman MD subsequent encounter for fracture with routine healing 09/06/2019 D18.09 Hemangioma of other sites Zhang Bowman MD 07/17/2019 S22.078D Oth fracture of T9-T10 vertebra, subs Zhang Bowman MD for fx w routn heal 07/15/2019 D18.09 Hemangioma of other sites Zhang Bowman MD 07/15/2019 S22.078D Other fracture of T9-T10 vertebra, Zhang Bowman MD subsequent encounter for Plan of Treatment Future Appointment(s):03/09/2020 1:00 pm - Zhang Bowman MD at [facility]10/25/2019 - Mary Stoner M.D.I25.10 Atherosclerotic heart disease of [place] coronary artery without angina pectorisFollow up:We will call with results. Keep OV and PO in approx March 2020M79.10 Myalgia, unspecified siteComments:I think these are related to spinal stenosis, good pulses and normal vascular study.I35.0 Nonrheumatic aortic (valve) stenosisComments:Mild on echo, normal heart strength and normal lung pressures on echo. Functional Status Description No Information Available Mental Status Description No Information Available Referrals Description No Information Available
--- OUTSIDE RECORDS SUMMARY | 2019-11-06 17:10 | XMS REPORT ---
:1930 Author Organization [facility] Care Team Providers Name Role Phone Unavailable [...]
--- OUTSIDE RECORDS SUMMARY | 2019-11-06 17:10 | XMS REPORT ---
:1930 Author Organization [facility] Care Team Providers Name Role Phone Unavailable [...]
--- OUTSIDE RECORDS SUMMARY | 2019-11-06 17:10 | XMS REPORT ---
:1930 Author Organization [facility] Care Team Providers Name Role Phone [...]
--- OUTSIDE RECORDS SUMMARY | 2019-11-06 17:10 | XMS REPORT ---
:1930 Author Organization [facility] Care Team Providers Name Role Phone Unavailable [...]
--- OUTSIDE RECORDS SUMMARY | 2019-11-06 17:10 | XMS REPORT ---
:1930 Author Organization [facility] Care Team Providers Name Role Phone [...]
--- OUTSIDE RECORDS SUMMARY | 2019-11-06 17:10 | XMS REPORT ---
:1930 Author Organization [facility] Care Team Providers Name Role Phone Unavailable [...]
--- OUTSIDE RECORDS SUMMARY | 2019-11-06 17:10 | XMS REPORT ---
:1930 Author Organization [facility] Care Team Providers Name Role Phone Unavailable [...]
--- OUTSIDE RECORDS SUMMARY | 2019-11-06 17:10 | XMS REPORT ---
:1930 Author Organization [facility] Care Team Providers Name Role Phone Unavailable [...]
--- OUTSIDE RECORDS SUMMARY | 2019-11-06 17:11 | XMS REPORT ---
:1930 Author Organization [facility] Care Team Providers Name Role Phone Unavailable [...]
--- OUTSIDE RECORDS SUMMARY | 2019-11-06 17:11 | XMS REPORT ---
:1930 Author Organization [facility] Care Team Providers Name Role Phone Unavailable [...]
--- OUTSIDE RECORDS SUMMARY | 2019-11-06 17:11 | XMS REPORT ---
:1930 Author Organization [facility] Care Team Providers Name Role Phone Unavailable [...]
--- OUTSIDE RECORDS SUMMARY | 2019-11-06 17:11 | XMS REPORT ---
:1930 Author Organization [facility] Care Team Providers Name Role Phone Unavailable [...]
--- OUTSIDE RECORDS SUMMARY | 2019-11-06 17:11 | XMS REPORT ---
:1930 Author Organization [facility] Care Team Providers Name Role Phone Unavailable [...]
--- OUTSIDE RECORDS SUMMARY | 2019-11-06 17:11 | XMS REPORT ---
:1930 Author Organization [facility] Care Team Providers Name Role Phone Unavailable [...]
--- OUTSIDE RECORDS SUMMARY | 2019-11-06 17:11 | XMS REPORT ---
:1930 Author Organization [facility] Care Team Providers Name Role Phone Unavailable [...]
--- OUTSIDE RECORDS SUMMARY | 2019-11-06 17:11 | XMS REPORT ---
:1930 Author Organization [facility] Care Team Providers Name Role Phone Unavailable [...]
[2019-11-06] MEDS ORDERED: Lidocaine 1% INJ* 10 MG/ML 30 ML SDV INJ ONE (18:03)
--- NOTE | 2019-11-06 18:11 | ED ---
Laceration/Wound HPI - HPI Summary HPI Summary: 89 year old male presents with laceration to his right pinky and ring finger today. He states that he cut it on a table saw. He states he has full range of motion of the fingers. He is on Coumadin but did not take his dose today yet. He states his INR has been normal with last being checked about a week ago. He denies any foreign body in the wound. He has a pressure dressing on area. No numbness or tingling. Tetanus is up-to-date. - History of Current Complaint Stated Complaint: FINGER LAC Time Seen by Provider: 11/06/19 17:04 Pain Intensity: 2 - Allergy/Home Medications Allergies/Adverse Reactions: Allergies Allergy/AdvReac Type Severity Reaction Status Date / Time amiodarone Allergy Mild See Comment Verified 11/06/19 17:03 sildenafil Allergy Dizziness Verified 11/06/19 17:03 PMH/Surg Hx/FS Hx/Imm Hx Endocrine/Hematology History: Reports: Hx Anticoagulant Therapy Denies: Hx Diabetes, Hx Sickle Cell Disease, Hx Thyroid Disease Cardiovascular History: Reports: Hx Angina, Hx Angioplasty, Hx Coronary Artery Disease, Hx Hypercholesterolemia, Hx Pacemaker/ICD - [employer] [id number] PRAJAPATI [place] [facility] [place] Cardiovascular Problems/Disorders - CARDIAC CATHERIZATION Denies: Hx Congestive Heart Failure, Hx Hypertension Respiratory History: Denies: Hx Asthma, Hx Chronic Obstructive Pulmonary Disease (COPD), Other Respiratory Problems/Disorders GI History: Reports: Hx Gastroesophageal Reflux Disease Denies: Hx Ulcer, Other GI Disorders History: Reports: Hx Benign Prostatic Hyperplasia Denies: Hx Renal Disease, Other Problems/Disorders Musculoskeletal History: Reports: Hx Arthritis - KNEES, SHOULDERS, NECK, Other Musculoskeletal History - right knee replacement Sensory History: Reports: Hx Cataracts - CHEVY, Hx Contacts or Glasses, Hx Hearing Problem Denies: Hx Hearing Aid Opthamlomology History: Reports: Hx Cataracts - [place], Hx Contacts or Glasses Neurological History: Denies: Other Neuro Impairments/Disorders Psychiatric History: Denies: Hx Panic Disorder - Cancer History Cancer Type, Location and Year: prostate CA - Surgical History Surgery Procedure, Year, and Place: 09/14/04 Gastroscopy- hiatial hernia; 10/03/04 - Cardiac Bi-pass of the circumfelx CA & Left anterior descending artery; : 3 stents in RCA; 03/03/05-1 stent proximal coronary; 01/04/2015- RCA- 3 stents; 08/06/13 Right TKR; 08/17/18- ED for "heart shock"; 01/28/14-prostate biopsy; adenocarcinoma; 02/12/14 Pacemaker placed. SINUS SURG. APPENDECTOMY. CATARACTS Hx Anesthesia Reactions: No - Immunization History Date of Tetanus Vaccine: Up to date Date of Influenza Vaccine: Fall 2012 Infectious Disease History: No Infectious Disease History: Denies: Hx Hepatitis, Hx Human Immunodeficiency Virus (HIV), Traveled Outside the [place] in Last 30 Days - Family History Known Family History: Positive: Cardiac Disease - Social History Alcohol Use: None Substance Use Type: Reports: None Smoking Status (MU): Former Smoker Type: Cigarettes Amount Used/How Often: PACK A DAY Have You Smoked in the Last Year: No Review of Systems Negative: Fever Negative: Chest Pain Negative: Shortness Of Breath Positive: Other - laceration pinky and ring finger All Other Systems Reviewed And Are Negative: Yes Physical Exam Triage Information Reviewed: Yes Vital Signs On Initial Exam: Initial Vitals Temp Pulse Resp BP Pulse Ox 98.6 F 65 17 172/92 100 11/06/19 17:00 11/06/19 17:00 11/06/19 17:00 11/06/19 17:00 11/06/19 17:00 Vital Signs Reviewed: Yes Appearance: Positive: Well-Appearing Skin: Positive: Warm, Dry, Other - 1 1/2cm by 1cm laceration to dorsum of left ring finger, 2cm by 1cm avulsion to dorsum of left pinky Head/Face: Positive: Normal Head/Face Inspection Eyes: Positive: Normal, Conjunctiva Clear ENT: Positive: Pharynx normal Respiratory/Lung Sounds: Positive: Clear to Auscultation, Breath Sounds Present Cardiovascular: Positive: Normal, RRR Musculoskeletal: Positive: Strength/ROM Intact - pinky and ring finger, Other - capillary refill<2secs Neurological: Positive: Normal Psychiatric: Positive: Normal Procedures - Sedation Patient Received Moderate/Deep Sedation with Procedure: No - Laceration/Wound Repair ring finger left Location: Other - left ring finger Description: Irregular Anesthesia: Digital, 1.0% Length, Depth and Shape: 1 1/2cm by 1cm Irrigated w/ Saline (ccs): 500 Suture Type: Prolene Number of Sutures: 3 Layer Closure?: No Sterile Dressing Applied?: Yes - xeroform, coband 2 Location: Other - right pinky Description: Irregular Length, Depth and Shape: 2cm by 1cm avulsion Irrigated w/ Saline (ccs): 500 Sterile Dressing Applied?: Yes - surgicel, xeroform, coband Diagnostics - Vital Signs Vital Signs Temp Pulse Resp BP Pulse Ox 11/06/19 17:00 98.6 F 65 17 172/92 100 - Laboratory Lab Statement: Any lab studies that have been ordered have been reviewed, and results considered in the medical decision making process. - Radiology pinky finger Radiology Interpretation Completed By: ED Physician Summary of Radiographic Findings: no fracture ring finger Radiology Interpretation Completed By: ED Physician Summary of Radiographic Findings: no fracture Laceration Repair Course/Dx - Course Course Of Treatment: 89 year old male presents with laceration to his right pinky and ring finger today. He states that he cut it on a table saw. He states he has full range of motion of the fingers. He is on Coumadin but did not take his dose today yet. He states his INR has been normal with last being checked about a week ago. He denies any foreign body in the wound. He has a pressure dressing on area. No numbness or tingling. Tetanus is up-to-date. On exam has 2 cm x 1 cm avulsion of right pinky finger. Place a pressure dressing on after irrigating. Has a one and half centimeter by 1 cm laceration to the right ring finger cleaned and place 3 sutures in. no fracture seen on preliminary xray read. Told to change the dressing daily. told follow up with primary for wound check. Patient understands and agrees plan. - Differential Dx Differental Diagnoses: Abrasion, Avulsion, Laceration - Clinical Impression Provider Diagnoses: Finger laceration, Finger avulsion Discharge ED - Sign-Out/Discharge Documenting (check all that apply): Patient Departure - Discharge Plan Condition: Good Disposition: HOME Patient Education Materials: Care For Your Stitches (ED) Referrals: Maru Drake NP [Primary Care Provider] - Additional Instructions: Keep area in pressure dressing for 48 hours, after 48 hours check for sign of infection leaving absorbable hemostat on wound and rewrap with pressure dressing for another 24 hours Keep area covered suture removal in 8-10 days Follow up with primary within 5 days Return to ED if develop any signs of infection such as fever, spreading redness , or pus formation or if bleed through pressure dressing or any new or worsening symptoms - Billing Disposition and Condition Condition: GOOD Disposition: Home - Attestation Statements Provider Attestation: I was available for consult. This patient was seen by the ISHMAEL. The patient was not presented to, seen by, or examined by me. Domingo Lopez MD
[2019-11-06 19:22] VITALS: BP 159/88
== END 2019-11-06 19:21 | disposition home or self-care (01) ==
LOC: ED 16:55
DX: S61.216A Laceration without foreign body of right little finger without damage to nail, initial encounter (principal); S61.214A Laceration without foreign body of right ring finger without damage to nail, initial encounter; W31.2XXA Contact with powered woodworking and forming machines, initial encounter; Y92.9 Unspecified place or not applicable; I25.10 Atherosclerotic heart disease of native coronary artery without angina pectoris; E78.00 Pure hypercholesterolemia, unspecified; K21.9 Gastro-esophageal reflux disease without esophagitis; Z87.891 Personal history of nicotine dependence; Z95.5 Presence of coronary angioplasty implant and graft; Z90.89 Acquired absence of other organs; Z95.0 Presence of cardiac pacemaker; Z85.46 Personal history of malignant neoplasm of prostate; Z79.01 Long term (current) use of anticoagulants; Z88.8 Allergy status to other drugs, medicaments and biological substances
CPT/HCPCS: 12001; 73140; 99282